=== PATIENT | female | born 2000 | race Hispanic/Latino ===

== ENCOUNTER 2020-07-16 13:38 | Day surgery (SDC) | payer SELFPAY ==
[~2020-07-16] VITALS: Ht 162.6 cm; Wt 65.7 kg
[2020-07-16] MEDS ORDERED: ACETAMINOPHEN 500 MG TAB PO ONE (14:45)
[2020-07-16] MEDS ORDERED: NS 1,000 ML IV ONE (14:45)
[2020-07-16 15:02] LABS: BASO % 0.1 % (0.0-1.0); EOS % 0.1 % (0.0-3.0); HEMATOCRIT 37.6 % (36.0-47.0); HEMOGLOBIN 12.4 g/dl (12.0-15.5); LYMPH # 0.9 10^3/uL (1.5-5.0); LYMPH % 5.7 % (24.0-44.0); MEAN CORPUSCULAR HEMOGLOBIN 29.7 pg (27.0-33.0); MEAN CORPUSCULAR VOLUME 90.2 fl (80.0-96.0); MONO # 0.7 10^3/uL (0.0-0.8); MONO % 4.5 % (0.0-5.0); NEUTROPHILS # 13.6 10^3/uL (1.5-8.5); NEUTROPHILS % 89.2 % (36.0-66.0); PLATELET COUNT, AUTOMATED 250 10^3/uL (150-450); RED BLOOD COUNT 4.17 10^6/uL (4.00-5.40); WHITE BLOOD COUNT 15.3 10^3/uL (4.0-10.0)
--- NOTE | 2020-07-16 15:56 | REP ---
INDICATION: reported spontaneous ab 07/14, lower abd pain. COMPARISON: None. TECHNIQUE: Transabdominal imaging of the uterus and adnexa The study is extremely technically difficult because of extreme pain to transducer pressure not allowing adequate compression of the soft tissues by the transducer and because the bladder is empty therefore there is no acoustic "window". FINDINGS: Images of the lower uterine segment including the cervix demonstrates an ovoid structure with echogenic rim in echo lucent center in the cervix, possibly the head. There is unusual soft tissue density above this in the lower uterine segment that appears to be displacing the endometrium on some of the images which may represent some of the body. The right and left ovaries are normal size. There are no dominant ovarian masses or cysts. There is no free fluid in the pelvis. IMPRESSION: Findings are suggestive of retained products of conception in the lower uterine segment and cervix. Extremely limited study as discussed above. <Electronically signed by Ronni Lofton > 07/16/20 [id number]
[2020-07-16 16:04] LABS: ALBUMIN 3.5 GM/DL (3.2-5.2); ALT/SGPT 22 U/L (12-78); BILIRUBIN,DIRECT 0.2 MG/DL (0.0-0.2); BILIRUBIN,TOTAL 0.5 MG/DL (0.2-1.0); BLOOD UREA NITROGEN 11 MG/DL (7-18); CARBON DIOXIDE LEVEL 27 MEQ/L (21-32); CHLORIDE LEVEL 106 MEQ/L (98-107); CREATININE FOR GFR 0.57 MG/DL (0.55-1.30); GLOMERULAR FILTRATION RATE > 60.0 (>60); GLUCOSE, FASTING 93 MG/DL (70-100); HCG, SERUM QUANTITATIVE 2725 MIU/ML; LIPASE 91 U/L (73-393); POTASSIUM SERUM 3.7 MEQ/L (3.5-5.1); SODIUM LEVEL 138 MEQ/L (136-145); TOTAL PROTEIN 7.1 GM/DL (6.4-8.2)
[2020-07-16] MEDS ORDERED: DOXYCYCLINE HYCLATE 100MG/10ML VIAL As Ordered ONE (19:30)
[2020-07-16] MEDS ORDERED: MIDAZOLAM INJ 2MG/2ML VIAL (J2250 PER 1MG) As Ordered ONE (19:30)
[2020-07-16] MEDS ORDERED: fentaNYL 100 MCG/2 ML INJECTION (J3010) As Ordered ONE (19:31)
[2020-07-16] MEDS ORDERED: dexameTHASONE 4 MG/ML 1ML VIAL (J1100 PER 1MG) As Ordered ONE (19:32)
[2020-07-16] MEDS ORDERED: KETOROLAC 60MG 2ML VIAL As Ordered ONE (19:32)
[2020-07-16] MEDS ORDERED: ONDANSETRON 4MG/2ML VIAL As Ordered ONE (19:32)
[2020-07-16] MEDS ORDERED: propofoL 200 MG/20 ML VIAL As Ordered ONE (19:33)
[2020-07-16] MEDS ORDERED: LIDOCAINE 2% 100MG/5ML SDV (FOR ANES.) As Ordered ONE (19:34)
[2020-07-16] MEDS ORDERED: DOXYCYCLINE HYCLATE 100MG/10ML VIAL IV ONE (20:04)
[2020-07-16] MEDS ORDERED: PHENYLephrine HCL 500 MCG/5 ML (100MCG/ML) SYRINGE (J2370) As Ordered ONE (20:06)
[2020-07-16] MEDS ORDERED: ePHEDrine SULFATE 25 MG/5 ML(5MG/ML) SYRINGE As Ordered ONE (20:06)
--- NOTE | 2020-07-16 20:23 | ROOPDOC ---
[facility] Report Of Operation Report of Operation DATE OF PROCEDURE: 07/16/2020 PREPROCEDURE DIAGNOSES: First trimester miscarriage, incomplete . POSTPROCEDURE DIAGNOSES: Same. PROCEDURE: Suction D&C. SURGEON: Dominic Thomas DO FACOG [employer] [employer]: none ANESTHESIA: General via LMA ESTIMATED BLOOD LOSS: Approximately 100 mL. IV FLUIDS REPLACED: 900 mL LR UOP: in and out cath, 600 mL COMPLICATIONS: none. SPECIMENS: products of conception, intrauterine tissue. PREOPERATIVE / PROPHYLACTIC ANTIBIOTIC: Doxycycline 100mg IV x1. INTRAOPERATIVE FINDINGS/REMARKS: Uterus sounded to 9 cm tissue at the level of the internal os with a dilated cervix DESCRIPTION OF PROCEDURE: The patient was counseled, consented on the risks, benefits, indications and alternatives procedure. Informed consent was obtained. She was taken to the operating room with an IV running and placed on the operating table in dorsal supine position. Gen. anesthesia was administered and the airway was secured without any difficulty. She was prepared and draped in the normal sterile fashion. She was placed in the high lithotomy position. A time out was performed per protocol. The bladder was drained with a sterile in and out catheter. Sterile speculum was placed with good visualization of the cervix. The cervix was grasped with a single-tooth tenaculum at the anterior lip and downward traction was applied. The cervix was sequentially dilated with Keon dilators up to a #20. A size 9 curved Vacurette was placed trans-cervically into the intrauterine cavity. Suction was activated. Tissue and blood return was consistent with products of conception. After removal of the Vacurette, a sharp curettage was performed with minimal tissue and blood return. Minimal bleeding from the cervical os was noted. The patient's vitals were normal and stable. The decision was made to conclude the procedure. Single-tooth tenaculum was removed from the cervix and the tenaculum sites were noted to be hemostatic. Again, minimal bleeding from the cervical os was noted. All instruments were removed from the vagina. Sponge and instrument counts were correct per protocol. The patient was transferred to the PACU in good and stable condition. Dominic Thomas DO FACOG. DOMINIC THOMAS DO Jul 16, 2020 20:23
[2020-07-16] MEDS ORDERED: IBUP80TA PO (20:25)
[2020-07-16] MEDS ORDERED: PERCOCET 5MG/325MG TAB PO PRN (21:00)
[2020-07-16] MEDS ORDERED: METOCLOPRAMIDE INJ 10MG/2ML VIAL (J2765 PER 1) IV PRN (21:00)
[2020-07-16] MEDS ORDERED: fentaNYL 100 MCG/2 ML INJECTION (J3010) IV PRN (21:00)
[2020-07-16] MEDS ORDERED: ONDANSETRON 4MG/2ML VIAL IV PRN (21:00)
[2020-07-16] MEDS ORDERED: DOXYCYCLINE HYCLATE 100 MG PO ONE (21:00)
[2020-07-16] MEDS ORDERED: LR 1,000 ML IV SCH ×2 (21:00)
[2020-07-16 22:33] VITALS: BP 102/60
== END 2020-07-16 22:41 | disposition home or self-care (01) ==
LOC: M ED 13:38 → M SDC 13:39
PROVIDERS: ATTEND Obstetrics & Gynecology
DX: O02.1 Missed abortion (principal)
CPT/HCPCS: 59820; 76856; 80048; 80076; 81001; 83605; 83690; 84702; 85025; 86850; 86900; 86901; 87086; 88305; 99284; J1100; J1885; J2250; J2370; J2405; J3010; U0002